=== PATIENT | male | born 1960 | race Caucasian/White ===

== ENCOUNTER 2020-05-02 16:55 | Inpatient (IN) | payer OTHER ==
[~2020-05-02] VITALS: Ht 160 cm; Wt 114.7 kg
--- NOTE | ~2020-05-02 | HEMODYNAMI ---
PATIENT:EDEN LOCO MEDICAL RECORD: [id number] : 62 LOCATION:[place] [address] ADMISSION DATE: 05/02/20 Generatedon:05/03/202013:41 Patient name: EDEN LOCO Patient #: [id number] SSN: : 1960 Date of study: 05/03/2020 Page: Of Hemodynamic Procedure Report Patient Data Patient Demographics Procedure consent was obtained First Name: EDEN Gender: Male Last Name: CLAUDY : 1960 Patient #: [id number] Age: 59 year(s) Race: Unknown Additional ID: [id number] Contact details Address: [address] [place] [address] [facility] [place] [facility] Zip code: [address] Past Medical History Allergies: No known allergies Admission Admission Data Admission Date: 05/02/2020 Admission Time: 18:45 Room #[facility] Procedure Procedure Types Cath Procedure Peripheral Cath Diagnostic Procedure Mental Health Associate Peripheral Procedures Venography IVC/SVC Inferior Venacava Filter Procedure Description Procedure Date Procedure Date: 05/03/2020 Procedure Start Time: 13:17 Procedure Staff Name Function Valente Salinas MD Performing Physician Sandra Garland RT Business Process Manager Jessica LOMAS RN Nurse Carlos Alberto August RT Scrub Procedure Data Cath Procedure Fluoroscopy Diagnostic fluoroscopy Total fluoroscopy Time: 1.1 time: 1.1 min min Diagnostic fluoroscopy Total fluoroscopy dose: 325 dose: 325 mGy mGy Contrast Material Contrast Material Type Amount (ml) Isovue 300 45 Diagnostic catheters Device Type Used For End Catheter Placement [facility] Pigtail VESSEL SIZING 5Fr 65CM catheter ([id number]) Procedure Medications Medication Administration Route Dosage Versed I.V. 1 mg Fentanyl I.V. 50 mcg Lidocaine 1% added to field 20 Fentanyl I.V. 25 mcg Versed I.V. 0.5 mg Hemodynamics Rest Heart Rate: 77 (bpm) Snapshots Pre Cath Intra NCS Post Cath Vital Signs Time Heart Resp SPO2 etCO2 NIBP (mmHg) Rhythm Pain Sedation Rate (ipm) (%) (mmHg) Status Level (bpm) 12:58:35 73 13 100 0 145/91(124) NSR 0 (11) 10(A) , No pain 13:02:51 78 15 99 0 153/87(131) NSR 0 (11) 10(A) , No pain 13:07:50 70 17 99 0 Measuring NSR 0 (11) 10(A) , No pain 13:08:21 71 17 97 0 140/89(105) NSR 0 (11) 10(A) , No pain 13:12:37 78 19 100 0 138/83(115) NSR 0 (11) 10(A) , No pain 13:16:51 76 15 100 34.6 144/86(123) NSR 0 (11) 9(A) , No pain 13:21:05 74 13 99 33.1 144/89(105) NSR 0 (11) 9(A) , No pain 13:25:19 80 16 98 18.8 126/84(113) NSR 0 (11) 9(A) , No pain 13:29:29 77 16 99 34.6 123/83(108) NSR 0 (11) 9(A) , No pain 13:33:41 76 18 99 31.6 124/81(109) NSR 0 (11) 9(A) , No pain 13:37:50 75 17 99 30.1 127/83(106) NSR 0 (11) 9(A) , No pain Medications Time Medication Route Dose Verified Delivered Reason Notes Effectiven ess by by 13:16:57 Versed I.V. 1 mg Valente Minner for Burda, ABEBE sedation RN 13:17:06 Fentanyl I.V. 50 Valente Minner for mcg Burda, ABEBE sedation RN 13:17:16 Lidocaine added 20ml Valente Minner used for 1% to vial Burda, ABEBE procedure field RN 13:22:38 Fentanyl I.V. 25 Valente Minner for mcg Burda, ABEBE sedation RN 13:22:44 Versed I.V. 0.5 Valente Minner for mg Burda, ABEBE sedation framework developer Log Time Note 12:42:13 Use device set IR Diagnostic 12:42:15 Tegaderm 4 x 4 (1626W) opened to sterile field. 12:42:16 Sterile Angiographic Pack opened to sterile field. 12:42:17 Bag Decanter (2001S) opened to sterile field. 12:42:18 ACIST Manifold (77552) opened to sterile field. 12:42:19 ACIST Hand Control (72916) opened to sterile field. 12:42:20 ACIST Syringe (92043) opened to sterile field. 12:43:02 DOC .035 wire (C13625) opened to sterile field. 12:43:02 Micropuncture VSI 4FR kit opened to sterile field. 12:43:03 TUBING Contrast Injection High Pressure ([id number]) opened to sterile field. 12:55:02 Time tracking: Call back (After hours or weekends) 12:55:27 Plan of Care:Hemodynamics will remain stable., Cardiac rhythm will remain stable., Comfort level will be maintained., Respiratory function will remain adequate., Patient/ family verbilizes understanding of procedure., Procedure tolerated without complication., Recovers from procedure without complications.. 12:55:35 Patient received from ICU to IR Alert and oriented. Tansferred to table in Supine position. 12:55:39 Signed procedure consent form obtained from patient. 12:56:58 H&P Date Dictated: 05/03/2020 Within 30 days and on chart.. 12:57:00 Pre-procedure instructions explained to patient. 12:57:01 Pre-op teaching completed and patient verbalized understanding. 12:57:03 Family unavailable. 12:57:05 Patient NPO since Midnight. 12:57:13 Patient allergic to No known allergies 12:57:19 - 12:57:25 ECG and BP/O2 sat monitors applied to patient. 12:57:29 Vital chart was started 12:59:19 Baseline sample Acquired. 12:59:24 - 12:59:29 ----Pre-sedation anethsthesia assessment.---- 12:59:32 Previous problem with sedation/anesthesia? No ? 12:59:35 Snore? Yes 12:59:37 Sleep apnea? No 12:59:39 Deviated septum? No 12:59:40 Opens mouth fully? Yes 12:59:43 Sticks out tongue? Yes 12:59:46 Airway obstruction? No ? 12:59:50 Dentures? No ? 13:00:11 Right neck area was prepped with chlora-prep and draped in sterile fashion 13:00:17 - 13:11:00 SHEATH 6FR B[place] (AWQ213) opened to sterile field. 13:14:24 Physician arrived 13:14:25 --------ALL STOP TIME OUT------ 13:14:25 Final Timeout: patient, procedure, and site verified with staff and physician. All members of the team are in agreement. 13:16:57 Versed 1 mg I.V. was administered by Jessica LOMAS RN; for sedation; Verbal order read back and verified. 13:17:06 Fentanyl 50 mcg I.V. was administered by Jessica LOMAS RN; for sedation; Verbal order read back and verified. 13:17:16 Lidocaine 1% 20ml vial added to field was administered by Jessica Mai RN; used for procedure; Verbal order read back and verified. 13:17:21 Fire Safety Assessment: A--An alcohol-based skin anteseptic being used preoperatively., C--Open oxygen or nitrous oxide is being used. 13:17:26 Procedure started. 13:17:26 Full Disclosure recording started 13:17:33 Local anesthetic to right IJ vein with Lidocaine 1% by Valente Salinas MD.INITIAL ACCESS ONLY 13:18:[address] [facility] Pigtail VESSEL SIZING 5Fr 65CM catheter ([id number]) was advanced over the wire and used for . 13:18:48 FILTER [place] Jugular Vena Cava ([id number]) opened to sterile field. 13:22:38 Fentanyl 25 mcg I.V. was administered by Jessica LOMAS RN; for sedation; Verbal order read back and verified. 13:22:44 Versed 0.5 mg I.V. was administered by Jessica LOMAS RN; for sedation; Verbal order read back and verified. 13:26:24 AMPLATZ Super stiff 180cm wire ([id number]) opened to sterile field. 13:28:46 DILATOR, VESSEL 9/20 opened to sterile field. 13:33:04 [place] Jugular IVC filter was placed below renal veins. 13:33:13 Procedure ended.(Physican Out) 13:33:25 Fluoroscopy time 01.10 minutes. 13:33:37 Flurop Dose total: 325 13:33:37 Fluoroscopy dose: 325 mGy 13:33:41 Contrast amount:Isovue 300 45ml. 13:38:26 Vital chart was stopped 13:39:16 Report given to CVICU. 13:39:24 Patient transfered to CVICU with Bed. Device Usage Item Name Manufacture Quantity Catalog Hospital Part Current Minima l Lot# / Number Charge Number Stock Stock Serial# Code Tegaderm 4 x 3M 1 1626W [id number] [id number] [id number] 5 4 (1626W) Sterile Cardinal 1 [id number] 674128 971257 5 Angiographic Health Pack Bag Decanter Microtek 1 464720 07674 357086 5 () Medical Inc. ACIST Acist 1 61914 267840 946002 052341 5 Manifold Medical (47427) Systems Inc ACIST Hand Acist 1 78899 712419 344520 589878 5 Control Medical (02917) Systems Inc ACIST Syringe Acist 1 69795 141319 921604 393361 20 (33277) Medical Systems Inc DOC .035 wire Cook Medical 1 [id number] 177201 148023 5 (U13326) Micropuncture VSI VASCULAR 1 7266V 250583 691337 5 VSI 4FR kit SOLUTIONS TUBING [facility] 1 [id number] 359388 559883 395507 5 Contrast Medical Injection High Pressure (YLS623D) SHEATH 6FR Terumo 1 PDX566 456731 951060 583844 40 [place]unk[place] (PMB388) Merit UHF Merit 1 7602-20M65 701117 860713 5 Pigtail Medical VESSEL SIZING 5Fr 65CM catheter ([id number]) FILTER [place] Bard 1 YE673W 306702 960640 653012 5 [id number] Jugular Vena Cava (IG749X) AMPLATZ Super [place] 1 [id number] 520270 784922 451902 5 stiff 180cm Scientific wire ([id number]) DILATOR, Cook Medical 1 [id number] 729277 17218 912952 5 VESSEL 08/10 Signature Audit [place] Stage Time Signature Unsigned Intra-Procedure 05/03/2020 Sandra Garland 1:41:05 PM RT(R) [facility] [address] [place] [address]
[2020-05-02] MEDS ORDERED: GLIPIZIDE10 MG PO (17:02)
[2020-05-02] MEDS ORDERED: GLUCOPHAGE1000 MG PO (17:02)
[2020-05-02 17:48] LABS: ANION GAP 11.4 mmol/L (8-16); CARBON DIOXIDE 25.5 mmol/L (21.0-32.0); CREATININE - SERUM 1.1 mg/dL (0.6-1.3); POTASSIUM - SERUM 3.9 mmol/L (3.5-5.1)
[2020-05-02 17:49] LABS: APTT 30.1 SECONDS (22.8-39.4); INR 1.44 (0.85-1.17); PROTIME 17.4 SECONDS (11.6-15.0)
[2020-05-02 17:54] LABS: ALBUMIN 3.1 g/dL (3.4-5.0); BILIRUBIN - TOTAL 0.29 mg/dL (0.2-1.3); PROTEIN - SERUM 6.8 g/dL (6.4-8.2)
[2020-05-02 18:30] LABS: BASOPHILS 0.2 % (0-2); EOSINOPHILS 5.8 % (0-7); HEMATOCRIT 36.7 % (42.0-54.0); HEMOGLOBIN 12.2 g/dL (13.5-17.5); IMMATURE GRANULOCYTES 0.4 % (0-5); LYMPHOCYTES 26.1 % (15-50); MCH 28.7 pg (26.0-34.0); MCHC 33.2 g/dL (31.0-37.0); MCV 86.4 fL (80.0-100.0); MEAN PLATELET VOLUME 9.8 fL (7.4-10.4); MONOCYTES 7.8 % (2-11); NEUTROPHILS 59.7 % (40-80); PLATELET COUNT 220 10x3/uL (130-400); RBC 4.25 10x6/uL (4.20-6.10); RDW 12.7 % (11.5-14.5); WBC 8.5 10x3/uL (4.8-10.8)
[2020-05-02 18:40] LABS: D-DIMER-QUANTITATIVE 3.22 ug/mLFEU (0.20-0.54)
--- NOTE | 2020-05-02 18:40 | NUR ---
CRITICAL LAB: [facility] 3.22 FABRICE MARLEY NOTIFIED
[2020-05-02 20:00] VITALS: BP 134/89
--- NOTE | 2020-05-02 20:00 | NUR ---
RADIOLOGY CONTACTED ME ABOUT A CRITICAL FINDING AND OZIEL NOLAN WAS PAGED. THERE ARE NO NEW ORDERS. CALL LIGHT WITHIN REACH. WILL CONTINUE TO MONITOR.
[2020-05-02 20:40] LABS: % SATURATION 8 % (15-55); IRON 28 ug/dl (35-150); TOTAL IRON BIND CAPACITY 312 ug/dl (260-445); UNSAT IRON BIND CAPACITY 284 ug/dl (150-375)
[2020-05-02 21:39] LABS: MAGNESIUM - SERUM 1.7 mg/dL (1.8-2.4)
--- NOTE | 2020-05-02 21:40 | NUR ---
PATIENT ARRIVED TO FLOOR VIA BED ACCOMPANIED BY ER STAFF. NO S/S OF ACUTE DISTRESS. NO C/O AT THIS TIME. PATIENT HAS 20G TO THE LEFT WRIST. IV IS PATENT WITHOUT REDNESS, SWELLING, OR TENDERNESS. PATIENT IS UP ADLIB. CALL LIGHT WITHIN REACH. WILL CONTINUE TO MONITOR.
[2020-05-03] VITALS (16 sets, daily range): BP systolic 134–174; BP diastolic 83–107; BMI 44.0
[2020-05-03 05:04] LABS: BASOPHILS 0.3 % (0-2); EOSINOPHILS 5.3 % (0-7); HEMATOCRIT 35.3 % (42.0-54.0); HEMOGLOBIN 11.2 g/dL (13.5-17.5); IMMATURE GRANULOCYTES 0.3 % (0-5); LYMPHOCYTES 29.1 % (15-50); MCH 27.5 pg (26.0-34.0); MCHC 31.7 g/dL (31.0-37.0); MCV 86.5 fL (80.0-100.0); MEAN PLATELET VOLUME 9.8 fL (7.4-10.4); MONOCYTES 9.5 % (2-11); NEUTROPHILS 55.5 % (40-80); PLATELET COUNT 221 10x3/uL (130-400); RBC 4.08 10x6/uL (4.20-6.10); RDW 12.7 % (11.5-14.5); WBC 7.7 10x3/uL (4.8-10.8)
[2020-05-03 05:30] LABS: ALBUMIN 2.4 g/dL (3.4-5.0); ALKALINE PHOSPHATASE 74 U/L (30-120); ALT (SGPT) 14 U/L (10-68); BILIRUBIN - TOTAL 0.39 mg/dL (0.2-1.3); CARBON DIOXIDE 26.9 mmol/L (21.0-32.0); CHLORIDE - SERUM 108 mmol/L (98-107); CREATININE - SERUM 0.9 mg/dL (0.6-1.3); MAGNESIUM - SERUM 1.7 mg/dL (1.8-2.4); POTASSIUM - SERUM 3.8 mmol/L (3.5-5.1); PROTEIN - SERUM 6.3 g/dL (6.4-8.2); SODIUM 139 mmol/L (136-145); eGFR NON AFRICAN AMERICAN > 90 mL/min (90-120)
[2020-05-03 05:34] LABS: CALC OSMOLALITY 285 mosm/kg (275-300); GLUCOSE 271 mg/dL (74-106); UREA NITROGEN 6 mg/dL (7-18)
--- NOTE | 2020-05-03 07:39 | NUR ---
RESTING IN BED, NO DISTRESS NOTED, IV INFUSING, ALERT AND O, CONT TO MONITOR PAIN AND RESP STATUS
--- NOTE | 2020-05-03 09:30 | NUR ---
HERE CONCERNED ABOUT PROGNOSIS AND CARE, WANTS TO CALL HER AT HOME
--- NOTE | 2020-05-03 12:00 | NUR ---
REPORT CALLED TO ICU, PT TAKEN OVER PER BED, IV INFUSING, NO DISTRESS NOTED
--- NOTE | 2020-05-03 12:49 | NUR ---
PT RECIEVED TO ROOM 1230 ATTACHED TO MONITORING EQUIPMENT VSS, CONSENTS SIGNED AND PT TO IR WITH IR STAFF 8811
[2020-05-03 12:56] LABS: APTT 35.9 SECONDS (22.8-39.4); INR 1.03 (0.85-1.17); PROTIME 13.5 SECONDS (11.6-15.0)
--- NOTE | 2020-05-03 13:03 | NUR ---
RECIEVED CALL FROM PTS DAUGHTER ASKING FOR UPDATE, UNAWARE OF SECURITY CODE, TOLD THAT INFO COULD NOT BE PROVIDED AND TO CONTACT PTS WHO IS LISTED NEXT OF KIN, RECIEVED CALL FROM PTS THAT SHE DID NOT WANT PT TO HAVE A SECURITY CODE BECAUSE THEY HAVE 13 KIDS, ATTEMPTED TO EXPLAIN THAT DUE TO HIPAA LAWS THE SECURITY CODE IS ASSIGNED ON ADMISSION, WAS CUT OFF WHILE SPEAKING SHE STATED SHE WOULD CALL HER HOME CARE MANAGER RN SO SHE DIDNT HAVE TO HAVE ONE BUT THAT FOR NOW SHE WOULD GIVE HER KIDS THE SECURITY CODE. CHARGE NURSE AND FLIGHT LINE SERVICE ATTENDANT NOTIFIED WHO STATED THAT THE SECURITY CODE IS MANDATORY.
[2020-05-03 13:10] LABS: CKMB 1.7 U/L (0.0-3.6); CREATINE KINASE 77 UL (21-232)
[2020-05-03 13:12] LABS: TROPONIN-I < 0.017 ng/mL (0.000-0.060)
[2020-05-03 16:09] LABS: CKMB 1.1 U/L (0.0-3.6); CREATINE KINASE 73 UL (21-232)
[2020-05-03 16:21] LABS: TROPONIN-I < 0.017 ng/mL (0.000-0.060)
--- NOTE | 2020-05-03 16:50 | NUR ---
NO TX GIVEN PT VOMITING
--- NOTE | 2020-05-03 17:36 | NUR ---
1600-RECIEVED FROM SPECIALS XRAY ACCOMPANIED BY RN AND TRADE RECRUITERDXNP-JYOEYZ-NKGDF R JUGULAR ENTRY -DRG DRY AND INTACT-DANII PPP STRONG -EQUAL MINIMAL EDEMA TO BOTH LOWER EXTREMITIES-PT DENIES ANY DISCOMFORT WITH LEGS/CALF-L PERIPHERAL IV INFUSING N/S AT 100ML/H-RESPONDS EASILY TO QUESTIONS 1610-NOTED PT ASLEEP-O2SAT DECREASED TO 77-HEART RATE DECREASED TO 7/MIN AND PERIODS OF APNEA-AWAKENS EASILY WITH HR RETURN TO 88-O2 SAT 100%-RR 16-PT NODDED YES WHEN ASKED IF HX OF SLEEP APNEA-DAUGHTER IN LAW AT BEDSIDE-PT AWAKE ALERT AND ANIMATED WITH DAUGHTER IN LAW-WITH PT PERMISSION UPDATED WITH CURRENT STATUS AND LIKELY PLAN OF CARE-PT AND FAMILY TEACHING DONE REGARDING COUMADIN AND INR BLOOD TESTING--1630-PT VOMITED LARGE AMOUNT OF EMESIS-ZOFRAN [id number]-[id number]-FUDT TREND 145SYS TO INCREASE-OF 170 SYS-DR HASKINS SERVICE NOTIFIED OF SAME -PENDING ORDER AND TELEPHARMACY [id number] OUT OF BED AND TO RESTROOM-VOMITED LARGE AMOUNT EMESIS-L PERIPHERAL IV IN PLACE AND RESUMED N/S FLUSH-STRESSED TO PT WILL ALLIVIATE VOMITING BY FLUSHING DYE AND IV SEDATION MEDS FROM SYSTEM-PT REFUSED TO RETURN TO BED-AGREED TO IV -SITTING IN CHAIR BY RESTROOM-AGREED TO ELECTRICAL EQUIPMENT TESTER-REFUSED BLOOD PRESSURE CUFF AT THIS TIME
--- NOTE | 2020-05-03 19:40 | NUR ---
REPORT REC'D AND CARE ASSUMED, PT SITTING UP IN RECLINER, AWAKE, ALERT, AND ORIENTED ON ROOM AIR, CM-SR, CHECKING BP SPORADICALLY PT WILL NOT WEAR BP CUFF OR PULSE OX, RIGHT NECK SITE CDI, LEFT HAND PIV WITH NS @ 100CC HR, PPP, PT DENIES NEEDS, WILL MONITOR FOR CHANGES
--- NOTE | 2020-05-03 21:00 | NUR ---
EVENING MEDS GIVEN BY Rich DOYLE RN AND TYELNOL 650MG GIVEN PO FOR COMPLAINTS OF HEADACHE, DENIES FURTHER NEEDS.
--- NOTE | 2020-05-03 21:15 | NUR ---
PTS CALLED UPDATE GIVEN SHE WANTED TO MAKE SURE NURSES KNOW PT DOES TALK AND YELL IN SLEEP, SHE STATES "HES USUALLY YELLING AT ONE OF HIS WORKERS HE WORKS FOR [employer]." SHE JUST DIDNT WANT NURSES TO THINK HE WAS HAVING NEURO ISSUES SINCE HE SLEEP TALKS. NURSE NOTIFIED
--- NOTE | 2020-05-03 22:00 | NUR ---
PT RESTING IN BED, EYES CLOSED, RESP EVEN AND UNLABORED, WILL MONITOR FOR CHANGES.
[2020-05-04] VITALS (10 sets, daily range): BP systolic 128–165; BP diastolic 69–97
--- NOTE | 2020-05-04 | NUR ---
PT UP TO BATHROOM VOMITING, 4MG ZOFRAN GIVEN SLOW IVP ON RETURNING TO BED, BP STABLE, WILL MONITOR CLOSELY FOR CHANGES.
--- NOTE | 2020-05-04 01:45 | NUR ---
PT UP TO BATHROOM VOMITING GREEN EMESIS, COLD CLOTH PROVIDED, AND ORAL CARE SUPPLIES PROVIDED, PT CHANGED SHIRT AND BRUSHED TEETH, BACK TO BED WITHOUT DIFFICULTY, WILL CONT TO MONITOR FOR CHANGES.
--- NOTE | 2020-05-04 03:15 | NUR ---
PT UP TO BATHROOM VOMITING, OZIEL SALMON APN PAGED FOR NAUSEA MEDICINE.
--- NOTE | 2020-05-04 03:45 | NUR ---
SPOKE WITH KUMAR BALDERAS, PHENERGAN 25MG IM ORDERED FOR N/V, PT RESTING EYES CLOSED, WILL MONITOR FOR CHANGES.
[2020-05-04 05:37] LABS: BASOPHILS 0.4 % (0-2); HEMATOCRIT 34.6 % (42.0-54.0); HEMOGLOBIN 11.3 g/dL (13.5-17.5); IMMATURE GRANULOCYTES 0.3 % (0-5); LYMPHOCYTES 16.7 % (15-50); MCH 28.3 pg (26.0-34.0); MCHC 32.7 g/dL (31.0-37.0); MCV 86.5 fL (80.0-100.0); MEAN PLATELET VOLUME 10.2 fL (7.4-10.4); MONOCYTES 7.8 % (2-11); NEUTROPHILS 71.8 % (40-80); PLATELET COUNT 243 10x3/uL (130-400); RDW 12.8 % (11.5-14.5); WBC 7.7 10x3/uL (4.8-10.8)
--- NOTE | 2020-05-04 06:30 | NUR ---
AM MEDS GIVEN ODRDERED PT DENIES NEEDS, CALL LIGHT IN REACH, VISIBLE TO NURSES STATION.
[2020-05-04 06:35] LABS: ALBUMIN 2.4 g/dL (3.4-5.0); ALKALINE PHOSPHATASE 65 U/L (30-120); ALT (SGPT) 13 U/L (10-68); BILIRUBIN - TOTAL 0.36 mg/dL (0.2-1.3); CALC OSMOLALITY 282 mosm/kg (275-300); CALCIUM 7.8 mg/dL (8.5-10.1); CARBON DIOXIDE 23.9 mmol/L (21.0-32.0); CHLORIDE - SERUM 107 mmol/L (98-107); CREATININE - SERUM 0.7 mg/dL (0.6-1.3); GLUCOSE 241 mg/dL (74-106); MAGNESIUM - SERUM 1.7 mg/dL (1.8-2.4); POTASSIUM - SERUM 3.9 mmol/L (3.5-5.1); PROTEIN - SERUM 6.4 g/dL (6.4-8.2); SODIUM 139 mmol/L (136-145); eGFR NON AFRICAN AMERICAN > 90 mL/min (90-120)
[2020-05-04 06:41] LABS: UREA NITROGEN 4 mg/dL (7-18)
--- NOTE | 2020-05-04 10:04 | NUR ---
PT VOMITING NO UPDRAFT TX GIVEN
--- NOTE | 2020-05-04 19:00 | NUR ---
PT LYING IN BED RESTING, MONITORS ON AND WORKING, PT AWAKE AND ALERT, CALL LIGHT WITHIN REACH VSS, SEE FLOW SHEET FOR FURTHER DETAILS, WILL CONTINUE TO OBSERVE.
--- NOTE | 2020-05-04 19:32 | NUR ---
0700-RECIEVED AWAKE AND ALERT-VOMITING IN RESTROOM 0930-DR HASKINS AT BEDSIDE AND NOTIFIED OF CANSTANT VOMITING WITH NO RELIEF FROM ZOFRAN--WIFES PHONE NUMBER GIVEN TO DR HASKINS 1030-ZOFRAN DRIP SET UP ORDERED 1200-DR MONCADA AT [facility]-INFORMED OF CONSTANT VOMITING-ZOFRAN GTT RUNNING-NO DECREASE IN VOMITING 1500-CALLED NURSE COMPLAINING OF SEVERE HEADACHE-STATES USES TYLENOL AT HOME SAME GIVEN 1700-PT HOLDING HEAD-STATEED SEVERE FHALWEFI-HJXHFVGJ-HJFRXZFZ 2MG IVP GIVEN 174-NO RELIEF FROM HEADACHE-DR ENCISO NOTIFIED OF SAME-NO NOTED NUERO CHANGES-ORDERS RECIEVED 1800-PT TO CT FOR CT OF HEAD-VOMITED LARGE AMOUNT IN CT-RETURNED TO -PLACED TO MONITOR FOR SR 1829-CT RESULT IN CHART WITH NO NOTED ABNORMALITY-LOVENOX SQ GIVEN
--- NOTE | 2020-05-04 21:00 | NUR ---
PT UP TO BATHROOM AD RAZA, PT TRANSFERS EASILY, VSS, CALL LIGHT WITHIN REACH, WILL CONTINUE TO OBSERVE.
--- NOTE | 2020-05-04 23:00 | NUR ---
PT LYING IN BED RESTING, MONITORS ON AND WORKING, VSS, CALL LIGHT WITHIN REACH, SEE FLOW SHEET FOR FURTHER DETAILS. WILL CONTINUE TO OBSERVE.
[2020-05-05] VITALS (17 sets, daily range): BP systolic 140–164; BP diastolic 56–91; Ht 160 cm; Wt 114.7 kg
--- NOTE | 2020-05-05 01:00 | NUR ---
NO CHANGES, CALL LIGHT WITHIN REACH, WILL CONTINUE TO OBSERVE.
--- NOTE | 2020-05-05 03:00 | NUR ---
PT N/V, IN BATHROOM. VSS, CALL LIGHT WITHIN REACH, ZOFRAN DRIP INFUSING. WILL CONTINUE TO OBSERVE.
[2020-05-05 05:18] LABS: BASOPHILS 0.3 % (0-2); EOSINOPHILS 2.9 % (0-7); HEMOGLOBIN 11.5 g/dL (13.5-17.5); IMMATURE GRANULOCYTES 0.1 % (0-5); LYMPHOCYTES 20.2 % (15-50); MCH 28.6 pg (26.0-34.0); MCHC 32.9 g/dL (31.0-37.0); MCV 87.1 fL (80.0-100.0); MEAN PLATELET VOLUME 9.9 fL (7.4-10.4); MONOCYTES 6.8 % (2-11); NEUTROPHILS 69.7 % (40-80); PLATELET COUNT 281 10x3/uL (130-400); RBC 4.02 10x6/uL (4.20-6.10); RDW 12.6 % (11.5-14.5); WBC 7.6 10x3/uL (4.8-10.8)
[2020-05-05 05:41] LABS: ALBUMIN 2.6 g/dL (3.4-5.0); ALKALINE PHOSPHATASE 63 U/L (30-120); BILIRUBIN - TOTAL 0.44 mg/dL (0.2-1.3); CALCIUM 7.8 mg/dL (8.5-10.1); CARBON DIOXIDE 23.5 mmol/L (21.0-32.0); CHLORIDE - SERUM 105 mmol/L (98-107); GLUCOSE 203 mg/dL (74-106); MAGNESIUM - SERUM 1.7 mg/dL (1.8-2.4); PROTEIN - SERUM 6.6 g/dL (6.4-8.2); SODIUM 138 mmol/L (136-145)
[2020-05-05 05:45] LABS: ALT (SGPT) 17 U/L (10-68); CALC OSMOLALITY 279 mosm/kg (275-300); CREATININE - SERUM 0.9 mg/dL (0.6-1.3); POTASSIUM - SERUM 3.3 mmol/L (3.5-5.1); UREA NITROGEN 6 mg/dL (7-18); eGFR NON AFRICAN AMERICAN > 90 mL/min (90-120)
--- NOTE | 2020-05-05 07:22 | NUR ---
SHIFT REPORT RECEIVED. PT RESTING IN BED. SLIGHT HEADACHE REPORTED. HEADACHE IS INTERMITTENT. HAD PIV TO L-HAND WITH NS AT 75ML/HR AND ZOFRAN AT 4.7ML/HR. ON ROOM AIR. NO FEVER NOTED. EDEMA NOTED TO LLE. PT STATES THAT LLE FEELS MUCH BETTER THAN YESTERDAY. SAFETY MEASURES IN PLACE. WILL CONTINUE TO MONITOR.
--- NOTE | 2020-05-05 09:54 | NUR ---
PT REPORTED TENDERNESS TO LEFT HAND PIV. DC'D IV AT THIS TIME. PLACED 20G PIV TO RIGHT HAND X 1 ATTEMPT. PT RESTING COMFORTABLY. NO NAUSEA OR VOMITING REPORTED AT THIS TIME. WILL CONTINUE TO MONITOR.
--- NOTE | 2020-05-05 11:42 | NUR ---
CALL RECEIVED FROM PT'S . PASS CODE VERIFIED. UPDATE GIVEN. 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 COULD NOT TELL ME THE NAME OF MEDICATION. SHE WILL FIND OUT AND GET BACK WITH ME.
--- NOTE | 2020-05-05 13:19 | NUR ---
SPOUSE IN UNIT. CONCERN ABOUT PT NOT BEING ABLE TO WORK. ASKED FOR DR. OSBORN STATING THAT PT WAS IN HOSPITAL AND THAT WILL NEED TO BE OFF WORK FOR AT LEAST A WEEK AFTER DISCHARGE. CASE MANAGEMENT PROVIDED DOCTOR'S EXCUSE. DR. NANCE SPOKE WITH SPOUSE VIA PHONE TO ANSWER ANY QUESTIONS OR CONCERNS.
--- NOTE | 2020-05-05 15:22 | NUR ---
PT RESTING IN BED. REPORTS HEADACHE 4/10 INTERMITTENT. TYLENOL DID NOT HELP THAT MUCH. DIET COLA PROVIDED. PT HAS NOT DRANK IT. NO FEVER NOTED. BP 158/86. CONTINUES ON ROOM AIR. DENIES OTHER NEEDS AT THIS TIME. WILL CONTINUE TO MONITOR.
--- NOTE | 2020-05-05 16:58 | NUR ---
MEAL TRAY DELIVERED. PT RESTING ON LEFT SIDE. DENIES ANY NEEDS AT THIS TIME. XI CONTINUE TO MONITOR.
--- NOTE | 2020-05-05 18:30 | NUR ---
UNABLE TO GET BP FOR 1700 AND 1800. PT DID NOT LEAVE BP CUFF ON.
--- NOTE | 2020-05-05 19:30 | NUR ---
PT IN BED WATCHING TV. DENIES PAIN OR OTHER NEEDS. CALL LIGHT IN REACH. WILL CONTINUE TO OBSERVE
--- NOTE | 2020-05-05 19:32 | MORECARE ---
CASE MANAGEMENT DISCHARGE SUMMARY PATIENT: EDEN LOCO UNIT: [id number] ADM DATE: 05/02/20 AGE: 59 : 62 SEX: M ROOM/BED: [facility] AUTHOR: ANH ROLON PHYSICIAN: REFERRING PHYSICIAN: SUSAN ENCISO MD DATE OF SERVICE: 05/05/20 Discharge Plan Patient Name: EDEN LOCO Facility: [facility]:[place] : 1960 Planned Disposition: Home Anticipated Discharge Date: Discharge Date: Expected LOS: Initial Reviewer: [email or web address] Initial Review Date: 05/02/2020 Generated: 05/05/20 8:31 pm Patient Name: EDEN LOCO Page 58464 at 1932 All edits/amendments must be made on the electronic document DICTATION DATE: 05/05/201930 SCHOOL YEAR NANNY: SARTHAK 05/05/201930 RPT#: [id number] DC DATE: STATUS: ADM IN [facility] [address] [place] [address] END OF REPORT
--- NOTE | 2020-05-05 20:53 | MORECARE ---
CASE MANAGEMENT DISCHARGE SUMMARY PATIENT: EDEN LOCO UNIT: [id number] ADM DATE: 05/02/20 AGE: 59 : 62 SEX: M [facility] AUTHOR: GONZALESDOC PHYSICIAN: REFERRING PHYSICIAN: SUSAN ENCISO MD DATE OF SERVICE: 05/05/20 Discharge Plan Patient Name: EDEN LOCO Facility: [facility]:[place] : 1960 Planned Disposition: Home Anticipated Discharge Date: Discharge Date: Expected LOS: Initial Reviewer: [email or web address] Initial Review Date: 05/02/2020 Generated: 05/05/20 9:52 pm Comments DCP- Discharge Planning Updated by [email or web address]: Lora Blancas on 05/05/20 7:[address] Patient Name: EDEN LOCO Admission Status: Elective Accout number: [id number] Admission Date: 05-02-2020 : 1960 Admission Diagnosis:AC EMBLSM AND THOMBOS UNSP DEEP VEINS OF LEFT DIST LOW Attending: SUSAN ENCISO Current LOS: 3 Anticipated DC Date: Planned Disposition: Home Primary Insurance: [facility] PPO Discharge Planning Comments: CM met with patient to complete initial dc planning assessment. CM educated patient on the CM role and verbal consent given by patient to complete assessment. Patient lives at home with family. Patient is independent. At discharge patient plans to return home and feels this is a safe discharge. CM discussed availability of home health, rehab services, and medical equipment. Patient will have family to transport home. Patient denied known discharge needs at this time. CM will continue to follow and will assist as needed with dc plans/needs. Basketballs [employer] Footballs Reverser: Lora Blancas DCPIA - Discharge Planning Initial Assessment Updated by [email or web address]: Lora Blancas on 05/05/20 8:49 pm * Is the patient Alert and Oriented? Yes * How many steps to enter\exit or inside your home? * PCP NO PCP * Pharmacy [facility] * Preadmission Environment Home with Family * ADLs Independent * Equipment None * List name and contact numbers for known caregivers / representatives who currently or will assist patient after discharge: [facility] - [facility]- [phone] * Verbal permission to speak to the caregivers and representatives has been obtained from the patient. Yes * Community resources currently utilized None * Additional services required to return to the preadmission environment? No * Can the patient safely return to the preadmission environment? Yes * Has this patient been hospitalized within the prior 30 days at any hospital? No Last DP export: 05/05/20 6:32 p Patient Name: EDEN LOCO Page 52494 at 2053 All edits/amendments must be made on the electronic document DICTATION DATE: 05/05/202051 NEW ACCOUNTS REPRESENTATIVE: SARTHAK 05/05/202051 RPT#: [id number] MD DATE: STATUS: ADM IN [facility] [address] [place] [address] END OF REPORT
--- NOTE | 2020-05-05 21:55 | NUR ---
PM MEDICATIONS GIVEN. TOLERATED WELL. NO NEEDS MADE KNOWN. PT TAKES OFF B/P CUFF AND DISCONNECTS SPO2 SENSOR.
--- NOTE | 2020-05-05 22:57 | NUR ---
PT WITH EYES CLOSED AND CHEST RISING. NO S/S OF DISTRESS. CALL LIGHT IN REACH. WILL CONTINUE TO OBSERVE.
[2020-05-06 03:00] VITALS: BP 78/39
--- NOTE | 2020-05-06 03:21 | NUR ---
PT UP TO BATHROOM WITHOUT DIFFICULTY. BACK IN BED. NO NEEDS MADE KNOWN. CALL LIGHT IN REACH. WILL CONTINUE TO OBSERVE.
[2020-05-06 04:00] VITALS: BP 77/42
[2020-05-06 05:37] LABS: BASOPHILS 0.3 % (0-2); HEMATOCRIT 32.6 % (42.0-54.0); HEMOGLOBIN 10.7 g/dL (13.5-17.5); IMMATURE GRANULOCYTES 0.3 % (0-5); LYMPHOCYTES 30.1 % (15-50); MCH 28.6 pg (26.0-34.0); MCHC 32.8 g/dL (31.0-37.0); MCV 87.2 fL (80.0-100.0); MEAN PLATELET VOLUME 9.6 fL (7.4-10.4); NEUTROPHILS 56.3 % (40-80); PLATELET COUNT 276 10x3/uL (130-400); RBC 3.74 10x6/uL (4.20-6.10); WBC 6.6 10x3/uL (4.8-10.8)
[2020-05-06 05:49] LABS: ALBUMIN 2.4 g/dL (3.4-5.0); ALKALINE PHOSPHATASE 61 U/L (30-120); ALT (SGPT) 17 U/L (10-68); BILIRUBIN - TOTAL 0.36 mg/dL (0.2-1.3); CALC OSMOLALITY 284 mosm/kg (275-300); CALCIUM 7.8 mg/dL (8.5-10.1); CARBON DIOXIDE 26.6 mmol/L (21.0-32.0); CHLORIDE - SERUM 108 mmol/L (98-107); CREATININE - SERUM 0.9 mg/dL (0.6-1.3); GLUCOSE 221 mg/dL (74-106); MAGNESIUM - SERUM 1.6 mg/dL (1.8-2.4); POTASSIUM - SERUM 3.6 mmol/L (3.5-5.1); PROTEIN - SERUM 6.2 g/dL (6.4-8.2); SODIUM 141 mmol/L (136-145); UREA NITROGEN 5 mg/dL (7-18); eGFR NON AFRICAN AMERICAN > 90 mL/min (90-120)
--- NOTE | 2020-05-06 06:00 | NUR ---
PT MONITOR WOULD NOT TAKE B/P. CHANGED CUFF AND PLACEMENT. REGIONAL FLATBED TRUCK DRIVER AWARE.
[2020-05-06 07:46] VITALS: BP 155/92
[2020-05-06 08:46] VITALS: BP 162/97
--- NOTE | 2020-05-06 09:41 | NUR ---
YADI ERNST DC'D PER DR. NANCE. NS DC'D PER DR. KANG. RIGHT HAND PIV SALINE LOC. PT WANTING A SHOWER. OFFERED TO SET UP BATH SINCE THERE ARE NO SHOWERS IN CVICU. HE REFUSED. WANTS TO WAIT FOR SHOWER WHEN HE IS TRANSFERRED TO REGULAR ROOM. PT CAN TRANSFER TO FLOOR PER DR. NANCE.
[2020-05-06 10:00] VITALS: BP 149/96
[2020-05-06 13:10] LABS: ACLA - IGG AB <9 GPL U/mL (0-14); ACLA - IGM AB <9 MPL U/mL (0-12)
--- NOTE | 2020-05-06 14:33 | NUR ---
PT TRANSFERRED TO ROOM 2104. PERSONAL BELONGINGS SENT WITH PATIENT INCLUDING CLOTHES, PHONE, BISQUE KILN PLACER AND GLASSES. CHART DELIVERED TO SENIOR BOOKKEEPER. STAFF NOTIFIED OF PT ARRIVAL. PT STATED THAT HE WOULD CALL HIS AND LET HER KNOW THAT HE HAD BEEN TRANSFERRED.
--- NOTE | 2020-05-06 14:45 | NUR ---
ARRIVE TO ROOM VIA WHEELCHAIR FROM CVICU. AMBULATES TO BED. GAIT STEADY. ALERT AND ORIENTED X4. RT HAND IV SL WITH SWAB CAP. REQUESTING SHOWER. DENIES ANY OTHER NEEDS. RESPIRATIONS NONLABORED. NO SIGNS OF DISTRESS. CONTINUE PLAN OF CARE AND SAFETY PRECAUTIONS.
--- NOTE | 2020-05-06 15:03 | EC ---
PATIENT:EDEN LOCO DATE OF SERVICE: 05/02/20 SEX: M MEDICAL RECORD: [id number] DATE OF : 62 LOCATION:D.M2 D.210 AGE OF PATIENT: 59 ADMISSION DATE: 05/02/20 REFERRING PHYSICIAN: INTERPRETING PHYSICIAN: SONIA WHITE MD ECHOCARDIOGRAM REPORT ECHO CHARGES 4 ECHO COMPLETE Date: 05/03/20 CLINICAL DIAGNOSIS: BILATERAL PULMONARY EMBOLI ECHOCARDIOGRAPHIC MEASUREMENTS (adult normal given) AC root (d.<3.7cm) 3.9 cm LV Septum d (<1.2 cm> 1.5 cm Valve Excursion 1.7 cm LV Septum (systole) 1.7 cm Left Atria (s.<4.0cm> 3.9 cm LVPW d(<1.2cm) 1.7 cm RV (d.<2.3cm) 3.6 cm LVPW (sytole) 1.9 cm LV diastole(<5.6CM) 5.0 cm MV E-F(>70mm/sec) cm LV systole 4.0 cm LVOT Diameter 2.0 cm MV exc.(>10mm) 1.3 cm Est.ejection fraction (50-75%) % DOPPLER: LVIT cm/sec A 99.0 cm/sec E 114.0 cm/sec LA cm/sec RVSP 26 mmHg LVOT 114 cm/sec AOP1/2T m/s Asc. Ao 153 cm/sec RVOT 67 cm/sec RA cm/sec PA 92 cm/sec AV Gradient Peak 9.41 mmHg AV Mean 5.25 mmHg AV Area 2.3 cm MV Gradient Peak 5.12 mmHg MV Mean 2.44 mmHg MV Area cm COMMENTS: Coating Mixer: 2 BARBRA FONTANA Ticket Collector: 3 Dr. Suresh TAPE# PACS Pericardial Effusion N DATE OF SERVICE: Adequate 2D, color flow imaging, spectral Doppler, and M-Mode. LVH is present. LV internal dimension is normal. Wall motion is normal. EF is greater that or equal to 55%. Aortic valve is tricuspid. No evidence of stenosis by Doppler interrogation. Left atrium is normal at 3.9 cm. Mitral valve shows no prolapse. Trace MR. Right-sided chambers are grossly normal. Trace TR. ECHOCARDIOGRAM REPORT [id number] EDEN LOCO TRANSINT:[id number] Voice Confirmation ID: [id number] DOCUMENT ID: [id number] SONIA WHITE MD at 1503 CC: [id number] DICTATION DATE: 05/04/20 1005 REFINERY OPERATOR CRUDE UNIT: 05/04/20 1349 ADM IN [facility] [address] [place] [address]
--- NOTE | 2020-05-06 19:30 | NUR ---
PT IN BED, AAO X3, RESP EVEN AND UNLABORED. NO DISTRESS NOTED, CL IN REACH, SR UP X 2. NO CONCERNS OR WANTS NOTED.
[2020-05-06 20:00] VITALS: BP 145/72
[2020-05-07] VITALS: BP 142/81
[2020-05-07 04:00] VITALS: BP 155/81
[2020-05-07 05:16] LABS: BASOPHILS 0.3 % (0-2); EOSINOPHILS 5.4 % (0-7); HEMATOCRIT 33.2 % (42.0-54.0); HEMOGLOBIN 10.7 g/dL (13.5-17.5); IMMATURE GRANULOCYTES 0.1 % (0-5); LYMPHOCYTES 24.7 % (15-50); MCH 28.1 pg (26.0-34.0); MCHC 32.2 g/dL (31.0-37.0); MCV 87.1 fL (80.0-100.0); MEAN PLATELET VOLUME 9.8 fL (7.4-10.4); MONOCYTES 9.4 % (2-11); NEUTROPHILS 60.1 % (40-80); PLATELET COUNT 296 10x3/uL (130-400); RBC 3.81 10x6/uL (4.20-6.10); RDW 13.1 % (11.5-14.5); WBC 6.9 10x3/uL (4.8-10.8)
[2020-05-07 05:26] LABS: ALBUMIN 2.4 g/dL (3.4-5.0); ALKALINE PHOSPHATASE 65 U/L (30-120); ALT (SGPT) 18 U/L (10-68); CALCIUM 8.2 mg/dL (8.5-10.1); CARBON DIOXIDE 27.2 mmol/L (21.0-32.0); CHLORIDE - SERUM 109 mmol/L (98-107); CREATININE - SERUM 0.8 mg/dL (0.6-1.3); GLUCOSE 220 mg/dL (74-106); MAGNESIUM - SERUM 1.7 mg/dL (1.8-2.4); POTASSIUM - SERUM 3.6 mmol/L (3.5-5.1); PROTEIN - SERUM 6.3 g/dL (6.4-8.2); SODIUM 142 mmol/L (136-145); eGFR NON AFRICAN AMERICAN > 90 mL/min (90-120)
[2020-05-07 05:34] LABS: CALC OSMOLALITY 288 mosm/kg (275-300); UREA NITROGEN 9 mg/dL (7-18)
[2020-05-07 08:12] LABS: LUPUS - INTERPRETATION Comment: (()); LUPUS - THROMBIN TIME 16.8 sec (0.0-23.0); LUPUS - dRVVT 49.8 sec (0.0-47.0); PTT-LA 45.7 sec (0.0-51.9)
[2020-05-07 10:34] VITALS: BP 153/94
--- NOTE | 2020-05-07 11:46 | NUR ---
DR JOHNSON SPEAKING TO ON PHONE AT THIS TIME.
[2020-05-07 12:10] LABS: PROTEIN S - FREE 125 % (57-157); PROTEIN S - TOTAL 129 % (60-150)
--- NOTE | 2020-05-07 13:00 | NUR ---
I have reviewed this patient and I concur with the Shift Assessment completed by the Licensed Practical Nurse today this shift.
--- NOTE | 2020-05-07 13:03 | NUR ---
Nutrition Follow-up: Pt reports good appetite/PO intake. Denies N/V/C/D. Diet: Diabetic PO intake: 50-100% Wt: 252.4# (05/06); 248# (05/05) Last BM: 05/06 Labs noted: Ca 8.2, Mg 1.7, Alb 2.4, Glu 220 Meds noted: Glucotrol, Protonix, Humulin, electrolyte protocol -Encourage PO intake and honor food preferences within diet restrictions. -Monitor wt; noted daily wts ordered. -RD following.
[2020-05-07] MEDS ORDERED: ELIQUIS5 MG PO (13:48)
--- NOTE | 2020-05-07 14:48 | NUR ---
D/C INSTRUCTIONS REVIEWED WITH PT. VERBALIZED AGREEMENT AND UNDERSTANDING. STATED HE WAS GOING TO GO GET HIS ELIQUIS RIGHT AFTER HE LEFT. REFUSED WHEELCHAIR OUT. AMBULATED WITH STEADY GAIT AND ALL BELONGINGS TO PERSONAL VEHICLE.
--- NOTE | 2020-05-08 09:04 | MORECARE ---
CASE MANAGEMENT DISCHARGE SUMMARY PATIENT: EDEN LOCO UNIT: [id number] ADM DATE: 05/02/20 AGE: 59 : 62 SEX: M ROOM/BED: D.2105 AUTHOR: GONZALESDOC PHYSICIAN: REFERRING PHYSICIAN: SUSAN ENCISO MD DATE OF SERVICE: 05/08/20 Discharge Plan Patient Name: EDEN LOCO Facility: [facility]:[place] : 1960 Planned Disposition: Home Anticipated Discharge Date: Discharge Date: 05/07/2020 Expected LOS: Initial Reviewer: [email or web address] Initial Review Date: 05/02/2020 Generated: 05/08/20 10:03 am Comments DCP- Discharge Planning Updated by [email or web address]: Lora Blancas on 05/05/20 7:[address] Patient Name: EDEN LOCO Admission Status: Elective Accout number: [id number] Admission Date: 05-02-2020 : 1960 Admission Diagnosis:AC EMBLSM AND THOMBOS UNSP DEEP VEINS OF LEFT DIST LOW Attending: SUSAN ENCISO Current LOS: 3 Anticipated DC Date: Planned Disposition: Home Primary Insurance: [facility] PPO Discharge Planning Comments: CM met with patient to complete initial dc planning assessment. CM educated patient on the CM role and verbal consent given by patient to complete assessment. Patient lives at home with family. Patient is independent. At discharge patient plans to return home and feels this is a safe discharge. CM discussed availability of home health, rehab services, and medical equipment. Patient will have family to transport home. Patient denied known discharge needs at this time. CM will continue to follow and will assist as needed with dc plans/needs. Revenue Accountant: Lora Blancas DCPIA - Discharge Planning Initial Assessment Updated by [email or web address]: Lora Blancas on 05/05/20 8:49 pm * Is the patient Alert and Oriented? Yes * How many steps to enter\exit or inside your home? * PCP NO PCP * [facility] * Preadmission Environment Home with Family * ADLs Independent * Equipment None * List name and contact numbers for known caregivers / representatives who currently or will assist patient after discharge: HO[place] LOCO - SPOUSE- [phone] * Verbal permission to speak to the caregivers and representatives has been obtained from the patient. Yes * Community resources currently utilized None * Additional services required to return to the preadmission environment? No * Can the patient safely return to the preadmission environment? Yes * Has this patient been hospitalized within the prior 30 days at any hospital? No Last DP export: 05/05/20 7:53 p Patient Name: EDEN LOCO Page [id number] at 0904 All edits/amendments must be made on the electronic document DICTATION DATE: 05/08/20902 PUBLIC HEALTH CLINICAL NURSE SPECIALIST: SARTHAK 05/08/20902 RPT#: [id number] DC DATE:05/07/20 STATUS: DIS IN [facility] [address] [place] [address] END OF REPORT
[2020-05-08 13:11] LABS: PROTEIN C - ANTIGEN 105 % (60-150); PROTEIN C - FUNCTIONAL 121 % (73-180)
[2020-05-08 19:08] LABS: FACTOR II DNA ANALYSIS Negative (())
== END 2020-05-07 14:52 | disposition home or self-care (01) | DRG 252 ==
LOC: D.ER 16:55 → D.CVICU 18:45 → D.MS 18:45 → D.ICU 05-03 12:24 → D.CVICU 05-03 13:13 → D.M2 05-06 14:29
PROVIDERS: Emergency Medicine; Family Medicine; General Practice; Internal Medicine Hematology & Oncology; ADMIT Family Medicine; ATTEND Family Medicine
PROC: 06H03DZ Insertion of Intraluminal Device into Inferior Vena Cava, Percutaneous Approach (ICD-10-PCS; principal; 2020-05-03 12:24)
DX: I82.4Z2 Acute embolism and thrombosis of unspecified deep veins of left distal lower extremity (principal); I26.99 Other pulmonary embolism without acute cor pulmonale; G47.33 Obstructive sleep apnea (adult) (pediatric); J31.0 Chronic rhinitis; R05 Cough; R63.4 Abnormal weight loss; E83.42 Hypomagnesemia; D64.9 Anemia, unspecified; E11.65 Type 2 diabetes mellitus with hyperglycemia; E66.9 Obesity, unspecified; I10 Essential (primary) hypertension; H81.09 Meniere's disease, unspecified ear; E87.6 Hypokalemia